=== PATIENT | male | born 2000 | race Caucasian/White ===

== ENCOUNTER 2024-06-14 17:33 | Emergency (ER) | payer SELFPAY ==
[2024-06-14 17:48] VITALS: BP 121/82
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
[2024-06-14] MEDS: TORADOL 15 MG IM (19:34)
[2024-06-14 20:40] VITALS: BP 118/86
== END 2024-06-14 20:41 | disposition home or self-care (01) ==
LOC: EMR 17:33
PROVIDERS: EMERGENCY PHYSICIAN Student in an Organized Health Care Education/Training Program
DX: S16.1XXA Strain of muscle, fascia and tendon at neck level, initial encounter (principal); S70.211A Abrasion, right hip, initial encounter; V43.52XA Car driver injured in collision with other type car in traffic accident, initial encounter
CPT/HCPCS: 99284; 96372; 72050